=== PATIENT | female | born 2000 | race Two or more races ===

== ENCOUNTER 2024-07-10 18:25 | Emergency (ER) | payer OTHER ==
[~2024-07-10] VITALS: Ht 160 cm; Wt 61.2 kg
[2024-07-10] MEDS ORDERED: PENICILLIN G BENZATHINE LA 1.2 MMU/2 ML DISP.SYRIN IM STA (20:21)
== END 2024-07-10 21:06 | disposition home or self-care (01) ==
LOC: ER 18:26
DX: N94.9 Unspecified condition associated with female genital organs and menstrual cycle (principal)